=== PATIENT | female | born 1970 | race Caucasian/White ===

== ENCOUNTER 2021-11-28 21:56 | Emergency (ER) | payer OTHER, SELFPAY ==
[2021-11-28 22:00] VITALS: BP 108/75; PULSE 94; RESP 20; TEMP 36.7; O2SAT 98; BMI 23.6
== END 2021-11-28 22:15 | disposition left against medical advice (07) ==
PROVIDERS: Emergency Provider Emergency Medicine
DX: Z53.21 Procedure and treatment not carried out due to patient leaving prior to being seen by health care provider (principal)
CPT/HCPCS: 99281

== ENCOUNTER 2021-12-02 05:52 | Emergency (ER) | payer OTHER, SELFPAY ==
[2021-12-02 06:05] VITALS: BP 113/76; PULSE 98; RESP 20; TEMP 37.2; O2SAT 97; BMI 22.9
--- NOTE | 2021-12-02 06:12 | ED.URI ---
HPI - URI/Sore Throat General Chief Complaint: Upper Respiratory Symptoms Stated Complaint: labored breathing x1 day Time Seen by Provider: 12/02/21 05:55 History of Present Illness HPI Narrative: Patient is a 51-year-old female with no past medical history presenting with known COVID, unvaccinated. She states she started having symptoms on the she was actually seen here at [facility]age on 11/28/2021 is O2 remained at 97% and she left before being seen by a provider. She states over last 1 day she has continued to have increasing shortness of breath and her home pulse oximeter dropped to 86%. She is currently mildly tachycardic with a heart rate of 107 and O2 of 97% at rest. He is concerned with her increasing shortness of breath. Review of Systems Review of Systems Narrative: GENERAL: Denies chills, fatigue, malaise, fever, sweats, travel HEENT: Denies sinus pain, ear pain, sore throat, difficulty swallowing, neck pain RESPIRATORY: See HPI CARDIOVASCULAR: Denies chest pain, palpitations, orthopnea, edema GASTROINTESTINAL: Denies nausea, vomiting, abdominal pain, diarrhea, constipation, melena. : Denies dysuria, frequency, incontinence, hematuria, urinary retention, flank pain. MUSCULOSKELETAL: Denies weakness, joint pain, or bony pain SKIN: No rash, no erythema, no pruritus NEUROLOGIC: Denies weakness, dizziness, headache, numbness, change in speech, confusion PSYCHIATRIC: No concerning psychosocial issues. 12 point review of systems is negative except for those stated above and HPI Patient History Social History Smoking Status: Never smoker Smoking Status: Never smoker alcohol intake frequency: 0-2 drinks per day Substance Use Type: does not use Exam Initial Vital Signs Initial Vital Signs: Vital Signs Temperature 99 F 12/02/21 06:05 Pulse Rate 98 H 12/02/21 06:05 Respiratory Rate 20 12/02/21 06:05 Blood Pressure 113/76 12/02/21 06:05 Pulse Oximetry 97 12/02/21 06:05 GENERAL: Alert 51-year-old female and in no acute distress. HEENT: Head atraumatic,EOMI, pupils reactive, face symmetric, moist mucous membranes CARDIOVASCULAR: Regular rate and rhythm without murmurs, rubs or gallops. RESPIRATORY: Breath sounds equal bilaterally, no wheezes rales or rhonchi. EXTREMITIES: Normal range of motion, no clubbing or edema. Neurovascularly intact NEUROLOGICAL: Alert and oriented x4.Normal gait and speech. SKIN: Warm, dry, no laceration, no petechiae, no rashes or lesions. MDM - URI/Sore Throat MDM Narrative Medical decision making narrative: The patient overall does not appear in any acute distress. She is upper chest x-ray and blood work. However would like to see what her ambulatory O2 oxygen is and it does remain at 94%. At this time she opts not to have any further testing done. Discharge Plan Departure Patient Disposition: Home Clinical Impression: COVID-19, Patient left without being seen Instructions: DI for COVID-19 (Suspected or Confirmed ), About the COVID-19 Vaccine, Can COVID-19 be prevented? Activity Restrictions/Additional Instructions: * if you have not yet been vaccinated is still recommended and encouraged that you do so once your infection has passed *Follow up with your primary provider in 2-3 days or call [phone] AT HOME: -Monitor oxygen with pulse oximeter. If less than 90% for more than 1 hour please return to emergency department -I recommend lying on stomach for side rather than back, it has been proven to increase oxygen levels -Wash hands frequently. -Stay isolated at home please follow the isolation instructions below. -Increase fluid intake. -you may take Tylenol as directed if needed for pain or fever EMERGENCY warning signs for COVID-19: - Difficulty breathing or shortness of breath, oxygen less than 90% - Persistent pain or pressure in the chest - New confusion or inability to arouse - Bluish lips or face CDC Guidelines for home isolation: - Stay away from others - Limit contact with pets and animals: If you must care for a pet, wash your hands before and after interacting with them - Wear a mask while in public all places - Cover your mouth and nose with a tissue when you cough or sneeze. Dispose of tissues in a lined trash can and wash your hands immediately with soap and water for at least 20 seconds. If soap and water are not available, clean hands with alcohol-based hand licensed optical dispenser that contains at least 60% alcohol. - Clean your hands often with soap and water for at least 20 seconds - Avoid touching your eyes, nose and mouth with unwashed hands - Do not share dishes, drinking glasses, cups, eating utensils, towels, or bedding with other people in your home. After using these items, wash them thoroughly with soap and water or put in the special delivery mail carrier. - Clean high-touch surfaces in your isolation area (?sick room? and bathroom) every day; let a caregiver clean and disinfect high-touch surfaces in other areas of the home. Clean the area or item with soap and water or another detergent if it is dirty. Then, use a household disinfectant.
--- NOTE | 2021-12-02 06:21 | PC.NURSE ---
Pt walked a lap around the department with portable pulse ox, O2 dipped to and remained at 94% while walking, she declined further tx.
== END 2021-12-02 06:22 | disposition home or self-care (01) ==
PROVIDERS: Emergency Provider Emergency Medicine
DX: U07.1 COVID-19 (principal)
CPT/HCPCS: 99281